=== PATIENT | male | born 1985 | race Caucasian/White ===

== ENCOUNTER 2017-12-17 11:09 | Day surgery (SDC) | payer MEDICAID ==
[2017-12-13 10:46] LABS: BASOPHILS % (AUTO) 0.3 % (0-1); EOSINOPHILS # (AUTO) 0.3 X10'3 (0-0.9); EOSINOPHILS % (AUTO) 4.4 % (0-6); MEAN CORPUSCULAR HEMOGLOBIN 28.3 PG (27.0-31.0); MEAN CORPUSCULAR HGB CONC 34.1 % (33.0-36.5); MEAN CORPUSCULAR VOLUME 82.9 FL (78-98); MEAN PLATELET VOLUME 9.3 FL (7.4-10.4); MONOCYTES # (AUTO) 0.4 X10'3 (0-0.9); MONOCYTES % (AUTO) 6.6 % (2-12); NEUTROPHILS # (AUTO) 3.6 X10'3 (1.8-7.7); NEUTROPHILS % (AUTO) 56.7 % (42-75); PRE OP HEMATOCRIT 44.8 % (42.0-52.0); PRE OP HEMOGLOBIN 15.3 g/dL (14.0-17.9); PRE OP PLATELET COUNT 202 X10'3 (140-440); RED CELL DISTRIBUTION WIDTH 13.6 % (11.5-14.5)
[2017-12-13 10:47] LABS: CLARITY,URINE CLEAR (Clear); COLOR,URINE YELLOW (Yellow); GLUCOSE, URINE NEGATIVE (Neg); KETONES,URINE NEGATIVE (Neg); LEUKOCYTE ESTERASE ,URINE NEGATIVE (Neg); NITRITES, URINE NEGATIVE (Neg); OCCULT BLOOD,URINE NEGATIVE (Neg); PROTEIN,URINE NEGATIVE (Neg); UROBILINOGEN,URINE 0.2 E.U/dL (0.2-1.0)
[2017-12-13 10:52] LABS: UA COLLECTION TYPE NON-SPECIFIED
[2017-12-13 11:01] LABS: ALBUMIN 3.8 G/DL (3.4-5.0); ALBUMIN/GLOBULIN RATIO 1.2 (1.1-1.5); ALKALINE PHOSPHATASE 90 IU/L (46-116); BLOOD UREA NITROGEN 13 MG/DL (7-18); BUN/CREATININE RATIO 13.8 (5.4-32.0); CALCIUM 8.9 MG/DL (8.5-10.1); CHLORIDE 108 MMOL/L (99-107); CREATININE 0.94 MG/DL (0.60-1.10); PRE OP ALT 55 U/L (30-65); PRE OP ANION GAP 9 (8-16); PRE OP AST 17 U/L (10-37); PRE OP BILIRUB, TOTAL 1.2 MG/DL (0.0-1.0); PRE OP GLUCOSE 110 MG/DL (70-104); PRE OP POTASSIUM 4.1 MMOL/L (3.4-5.1); PRE OP SODIUM 143 MMOL/L (135-145); TOTAL CARBON DIOXIDE 25.7 MMOL/L (24-32); TOTAL PROTEIN 6.9 G/DL (6.4-8.2); eGFR > 90 ML/MIN
[~2017-12-17] VITALS: Ht 188 cm; Wt 118.6 kg
[2017-12-17] VITALS (8 sets, daily range): BP systolic 112–138; BP diastolic 63–75
[~2017-12-17 11:09] MED LIST: MV-M1TAB3 PO; ceFAZolin inj. 3,000 MG in normal saline 100ml IV soln 100 ML IV ONE; famotidine 20mg tablet PO ONE; ringers solution, lacted 1,000 ML IV SCH
[2017-12-17] MEDS ORDERED: ringers solution, lacted 1,000 ML IV SCH (13:27)
[2017-12-17] MEDS ORDERED: meperidine/PF 50mg/ml syringe IV PRN ×3 (13:30)
[2017-12-17] MEDS ORDERED: proCHLORperazine 10 MG/2 ml inj IV PRN (13:30)
[2017-12-17] MEDS ORDERED: morphine 2 MG/ML inj. syringe IV PRN ×2 (13:30)
[2017-12-17] MEDS ORDERED: ondansetron/PF 4mg/2ml inj IV PRN (13:30)
[2017-12-17] MEDS ORDERED: BUPIVAcaine/PF 2.5 mg/ml (0.25%) 30ml vial ONE (13:50)
[2017-12-17] MEDS ORDERED: LIDOcaine 1% 30ml vial 30 ML ONE (13:51)
[2017-12-17] MEDS ORDERED: sevoflurane 250ml liquid IH ONE (15:22)
[2017-12-17] MEDS ORDERED: ondansetron/PF 4mg/2ml inj ONE (15:22)
[2017-12-17] MEDS ORDERED: dexamethasone sod phosphate 4mg/ml inj. ONE (15:22)
[2017-12-17] MEDS ORDERED: fentaNYL/PF 50MCG/1 ML 2ML syringe ONE (15:29)
[2017-12-17] MEDS ORDERED: midazolam 2 mg/2 ml injection ONE (15:30)
[2017-12-17] MEDS ORDERED: LIDOcaine 2% (20mg/ml) 5ml vial ONE (15:31)
[2017-12-17] MEDS ORDERED: propofol inj 20 ML IV ONE (15:31)
== END 2017-12-17 17:20 | disposition home or self-care (01) ==
LOC: PAS 11:09
PROVIDERS: ATTEND Surgery
DX: D36.17 Benign neoplasm of peripheral nerves and autonomic nervous system of trunk, unspecified (principal); E66.9 Obesity, unspecified; K21.9 Gastro-esophageal reflux disease without esophagitis; Z72.89 Other problems related to lifestyle; Z98.890 Other specified postprocedural states; Z87.891 Personal history of nicotine dependence; Z68.34 Body mass index [BMI] 34.0-34.9, adult
CPT/HCPCS: 11404; 36415; 80053; 81003; 85025; A6449; J0690; J1100; J2001; J2250; J2405; J2704; J3010; J3490; J7030; J7120; A7000

== ENCOUNTER 2018-05-15 08:36 | Emergency (ER) | payer MEDICAID ==
[~2018-05-15] VITALS: Ht 188 cm; Wt 106.8 kg
[~2018-05-15 08:36] MED LIST changes: -ceFAZolin inj. 3,000 MG in normal saline 100ml IV soln 100 ML IV ONE; -famotidine 20mg tablet PO ONE; -ringers solution, lacted 1,000 ML IV SCH
[2018-05-15 08:39] VITALS: BP 106/73
[2018-05-15] MEDS ORDERED: ACET-3068 PO (10:35)
== END 2018-05-15 11:11 | disposition home or self-care (01) ==
LOC: ER 08:37
DX: S54.01XA Injury of ulnar nerve at forearm level, right arm, initial encounter (principal); Z79.899 Other long term (current) drug therapy; Z98.890 Other specified postprocedural states; X58.XXXA Exposure to other specified factors, initial encounter; Y93.89 Activity, other specified; Y92.89 Other specified places as the place of occurrence of the external cause; Y99.8 Other external cause status
CPT/HCPCS: 29105; 99283; A4565; A6449

== ENCOUNTER 2018-11-26 04:23 | Emergency (ER) | payer MEDICAID ==
[~2018-11-26] VITALS: Ht 188 cm; Wt 120.0 kg
--- NOTE | 2018-11-26 04:43 | NUR ---
[facility] REPORTED THAT THE [facility] BROTHERS DID CALL [facility] OFFICE CONFIRMING THE PATIENTS STORY THAT [facility] RESPONDED TO HOUSE, BOTH DECLINING TO PRESS CHARGES
[2018-11-26] MEDS ORDERED: LIDOcaine 1.5% w/epinephrine 1:200,000 5ml ampul IJ ONE (04:50)
[2018-11-26] MEDS ORDERED: TETanus/Pertussis (Acell)/Diphther VAC/PF (Tdap-Adult) 0.5ml syringe IM ONE (04:50)
[2018-11-26] MEDS ORDERED: LIDOcaine 1% w/EPI 1:100,000 30ml vial (MDV) IJ ONE (04:55)
--- NOTE | 2018-11-26 04:55 | NUR ---
PT TO CT
--- NOTE | 2018-11-26 05:05 | NUR ---
pt back from ct, he is visiting with his brother. He has an ice pack.
--- NOTE | 2018-11-26 05:41 | NUR ---
fresh ice packs to his left eye, hob has been and is elevated 45 degrees. Instructed him to put down his cell phone, for less eye strain, to relax. Lights dimmed.
[2018-11-26] MEDS ORDERED: ondansetron 4mg rapidly disintigrating tab PO ONE (06:50)
--- NOTE | 2018-11-26 07:04 | NUR ---
TECH AT BEDSIDE TO IRRIGATE WOUNDS. PT MEDICATED FOR NAUSEA
--- NOTE | 2018-11-26 07:23 | NUR ---
DR MCKEE AT BEDSIDE FOR SUTURE REPAIR
--- NOTE | 2018-11-26 07:45 | NUR ---
LAC REPAIR COMPLETE
--- NOTE | 2018-11-26 08:01 | NUR ---
PT ASLEEP-SNORING RESPIRATIONS, AWAKENS TO VERBAL. DECLINES PAIN MEDS. +ETOH
--- NOTE | 2018-11-26 08:55 | NUR ---
REPORT CALLED TO [place] AT [facility]. REPORT TO [employer]ER LOCOMOTIVE CRANE CAMILO. PT TRANSFERED VIA AMBULANCE TO [facility]
[2018-11-26 09:10] VITALS: BP 162/98
== END 2018-11-26 09:12 | disposition short-term general hospital (02) ==
LOC: ER 04:23
DX: S02.82XA Fracture of other specified skull and facial bones, left side, initial encounter for closed fracture (principal); S01.81XA Laceration without foreign body of other part of head, initial encounter; S05.12XA Contusion of eyeball and orbital tissues, left eye, initial encounter; H11.32 Conjunctival hemorrhage, left eye; F12.90 Cannabis use, unspecified, uncomplicated; Z98.890 Other specified postprocedural states; Y04.0XXA Assault by unarmed brawl or fight, initial encounter; Y93.89 Activity, other specified; Y92.89 Other specified places as the place of occurrence of the external cause; Y99.9 Unspecified external cause status
CPT/HCPCS: 12014; 70450; 70486; 72125; 90471; 90715; 99285; J3490

== ENCOUNTER 2019-04-11 19:57 | Emergency (ER) | payer MEDICAID, OTHER ==
[~2019-04-11] VITALS: Ht 188 cm; Wt 113.0 kg
[2019-04-11 20:07] VITALS: BP 141/84
== END 2019-04-11 22:39 | disposition home or self-care (01) ==
LOC: ER 19:58
DX: S61.211A Laceration without foreign body of left index finger without damage to nail, initial encounter (principal); F12.90 Cannabis use, unspecified, uncomplicated; Z98.890 Other specified postprocedural states; Z79.899 Other long term (current) drug therapy; W25.XXXA Contact with sharp glass, initial encounter; Y93.E9 Activity, other interior property and clothing maintenance; Y92.89 Other specified places as the place of occurrence of the external cause; Y99.8 Other external cause status
CPT/HCPCS: 12001; 99283

== ENCOUNTER 2019-12-30 20:24 | Inpatient (IN) | payer OTHER ==
[~2019-12-30] VITALS: Ht 188 cm; Wt 116.8 kg
[2019-12-30 21:40] LABS: BASOPHILS % (AUTO) 0.6 % (0-1); EOSINOPHILS # (AUTO) 0.1 X10'3 (0-0.9); EOSINOPHILS % (AUTO) 1.6 % (0-6); HEMATOCRIT 37.9 % (42.0-52.0); HEMOGLOBIN 12.8 g/dl (14.0-17.9); LYMPHOCYTES # (AUTO) 2.4 X10'3 (1.1-4.8); LYMPHOCYTES % (AUTO) 30.6 % (21-51); MEAN CORPUSCULAR HEMOGLOBIN 26.8 PG (27.0-31.0); MEAN CORPUSCULAR HGB CONC 33.9 g/dL (33.0-36.5); MEAN CORPUSCULAR VOLUME 79.1 FL (78-98); MEAN PLATELET VOLUME 9.9 FL (7.4-10.4); MONOCYTES # (AUTO) 0.7 X10'3 (0-0.9); MONOCYTES % (AUTO) 8.6 % (2-12); NEUTROPHILS # (AUTO) 4.6 X10'3 (1.8-7.7); NEUTROPHILS % (AUTO) 58.6 % (42-75); PLATELET COUNT 163 X10'3 (140-440); RED BLOOD COUNT 4.79 X10'6 (4.70-6.10); RED CELL DISTRIBUTION WIDTH 13.9 % (11.5-14.5); WHITE BLOOD COUNT 7.8 X10'3 (4.5-11.0)
[2019-12-30 21:43] LABS: CLARITY,URINE CLEAR (Clear); COLOR,URINE YELLOW (Yellow); GLUCOSE, URINE NEGATIVE (Neg); KETONES,URINE NEGATIVE (Neg); LEUKOCYTE ESTERASE ,URINE NEGATIVE (Neg); NITRITES, URINE NEGATIVE (Neg); OCCULT BLOOD,URINE NEGATIVE (Neg); PH,URINE 5.5 (4.8-8.0); PROTEIN,URINE NEGATIVE (Neg)
[2019-12-30 21:53] LABS: ALANINE AMINOTRANSFERASE 63 U/L (12-78); ALBUMIN 3.3 G/DL (3.4-5.0); ALKALINE PHOSPHATASE 179 IU/L (46-116); ANION GAP 12 (8-16); ASPARTATE AMINO TRANSFERASE 41 U/L (10-37); BILIRUBIN,TOTAL 2.9 MG/DL (0.1-1.0); BLOOD UREA NITROGEN 9 MG/DL (7-18); BUN/CREATININE RATIO 9.4 (5.4-32.0); CALCIUM 8.2 MG/DL (8.5-10.1); CHLORIDE 108 MMOL/L (99-107); CREATININE 0.96 MG/DL (0.60-1.10); GLUCOSE 100 MG/DL (70-104); LIPASE 104 U/L (73-393); POTASSIUM 4.1 MMOL/L (3.5-5.1); SODIUM 143 MMOL/L (135-145); TOTAL CARBON DIOXIDE 23.4 MMOL/L (24-32); TOTAL PROTEIN 6.6 G/DL (6.4-8.2); eGFR 89 ML/MIN
[2019-12-30 22:06] LABS: UA COLLECTION TYPE VOIDED
[2019-12-31] VITALS (9 sets, daily range): BP systolic 98–125; BP diastolic 53–94
[2019-12-31] MEDS ORDERED: normal saline 1000ML IV soln IVB ONE (00:50)
[2019-12-31] MEDS ORDERED: ondansetron/PF 4mg/2ml inj IV ONE (00:50)
[2019-12-31] MEDS: morphine 4 MG/ML inj SYRINge IV PRN ×2 (00:57→01:24)
--- NOTE | 2019-12-31 01:04 | NUR ---
pts heartrate increased to 170's after MD performed abd exam. MD aware - meds and fluids have been ordered and pt has been medicated.
--- NOTE | 2019-12-31 01:26 | NUR ---
pt remains tachycardic but no new complaints. he finished the 1l bolus and has been given 4mg morphine x 2 doses. will notify MD and continue to monitor. CT was completed, pending results.
[2019-12-31] MEDS ORDERED: NO HOME MEDS (02:12)
[2019-12-31] MEDS ORDERED: piperacillin/tazo 3.375gm/50ml 50 ML IV ONE (02:25)
--- NOTE | 2019-12-31 02:53 | NUR ---
PTS HEARTRATE IS STILL ELEVATED. AWARE - NO NEW ORDERS. IV ABX INFUSING
--- NOTE | 2019-12-31 03:08 | NUR ---
HOSPITALIST AT BEDSIDE FOR ADMISSION
--- NOTE | 2019-12-31 03:13 | NUR ---
VERBAL ORDER FROM [facility] FOR 10MG CARDIZEM IV PUSH AND THEN CARDIZEM DRIP AT 5ML\HR - ORDERS ENTERED AND PT WILL BE MEDICATED ORDERED
[2019-12-31] MEDS ORDERED: diltiazem 5mg/ml 5ml inj. IV ONE (03:15)
[2019-12-31] MEDS ORDERED: diltiazem-D5W 125mg/125ml 125 ML IV SCH ×2 (03:15→04:45)
[2019-12-31] MEDS ORDERED: diltiazem-NS 100mg/100ml 100 ML IV SCH (03:15)
[2019-12-31] MEDS ORDERED: magnesium 2GM in 50ml NS 50 ML IV PRN (03:20)
[2019-12-31] MEDS ORDERED: morphine 2 MG/ML inj. syringe IV PRN ×2 (03:20)
[2019-12-31] MEDS ORDERED: potassium CL 10mEq/100ml bag 100 ML IV PRN ×2 (03:20)
[2019-12-31] MEDS ORDERED: magnesium 4gm in 100ml NS 100 ML IV PRN (03:20)
[2019-12-31] MEDS ORDERED: ondansetron/PF 4mg/2ml inj IV PRN (03:20)
[2019-12-31] MEDS: normal saline 1000ml 1,000 ML IV SCH ×3 (03:41→19:09)
--- NOTE | 2019-12-31 04:42 | NUR ---
PTS HR DOWN TO 130'S - CARDIZEM INFUSING AT 5ML/HR
--- NOTE | 2019-12-31 04:46 | NUR ---
DOM CONTACTED TO GET ORDER TO INCREASE CARDIZEM TO 10MG/HR PT IS NOT RESPONDING TO 5MG\HR - HEART RATE STILL IN 140'S CURRENTLY.
[2019-12-31] MEDS: diltiazem-NS 100mg/100ml 100 ML IV SCH ×4 (04:53→21:30)
--- NOTE | 2019-12-31 05:18 | NUR ---
SPOKE WITH MD FERNANDES RE: D-DIMER RESULT - VERBAL ORDER FOR CTA CHEST
[2019-12-31] MEDS ORDERED: iohexol 350MG/ML 100ml bottle IV ONE (05:30)
--- NOTE | 2019-12-31 05:46 | NUR ---
PT PLACED ON HOSPITAL BED FOR COMFORT
--- NOTE | 2019-12-31 05:48 | NUR ---
PT BACK FROM CTA CHEST STUDY AND PLACED ONTO HOSPITAL BED FOR COMFORT.
--- NOTE | 2019-12-31 07:14 | NUR ---
patient arrived on unit already in hospital bed, alert and oriented x4, pleasant, states pain is 4/10 at this time. cardizem drip at 10, placed patient on mobile, VSS except HR in 130s, patient states no SOB and does not feel like heart is racing. Denies any illicit drug use. Patient to go for cholecystectomy this evening with Dr. Silverman. No acute distress, will continue to monitor.
[2019-12-31] MEDS: K and/or MAG REPLACEMENT MC SCH ×2 (08:00→20:00)
[2019-12-31] MEDS: piperacillin/tazo 3.375gm/50ml 50 ML IV SCH ×2 (10:12→16:08)
--- NOTE | 2019-12-31 12:32 | NUR ---
Received order for patient to go to MRI for MRCP, called Dr. Clemente to confirm order as patient is currently on a cardizem drip at 10ml/hr with HR still in 130s.
[2019-12-31] MEDS ORDERED: diltiazem 30mg tablet PO ONE (12:40)
--- NOTE | 2019-12-31 12:50 | NUR ---
Dr. Clemente called, said "have the hospitalist figure it out" regarding the MRI and the patient's current HR and cardizem drip status.
--- NOTE | 2019-12-31 13:17 | NUR ---
PAGER ID: [phone] MESSAGE: Re: Ute Green. Room: 3026A. EKG performed on Pt. Do you want to see it? -Renato PCU #[id number] Dr. Benton paged concerning Pt's EKG
[2019-12-31] MEDS ORDERED: NORMAL SALINE IV ONE (14:30)
[2019-12-31] MEDS ORDERED: SINCALIDE IV ONE (14:30)
--- NOTE | 2019-12-31 15:02 | NUR ---
Called Vijaya CHERY. Confirmed that HIDA scan will be with EF. Elias Aguiar in Nuc Med.
--- NOTE | 2019-12-31 15:04 | NUR ---
Problems reprioritized. Patient report given, questions answered & plan of care reviewed with MINDY Valdovinos.
--- NOTE | 2019-12-31 15:05 | NUR ---
Patient in room PCU 3026. I have received report from Ana Price RN and had the opportunity to ask questions and assume patient care.
--- NOTE | 2019-12-31 15:12 | NUR ---
PAGER ID: [phone] MESSAGE: [id number], Nayan Unger. Still afib in 120s-130s. HIDA scan will not be done til tomorrow AM. Can he eat before he goes NPO after midnight? Leilani [phone]
--- NOTE | 2019-12-31 16:24 | NUR ---
Spoke with Chetan CHERY at bedside. States patient will go to surgery on cardizem drip and patient may go all the way up to max dose if heart rate needs it. Chetan CHERY instructed me to call pharmacy to confirm max dose and have patient on a rate of 15 mg/hr. Spoke with pharmacist who states 15mg/hr is max dose and can be maintained at a max of 24hrs so HR needs to be monitored so that dose may be re-evaluated before 24hr freddie. Pharmacist instructed me to edit dosing to 15mg/hr on [employer] and they will send up another bag.
--- NOTE | 2019-12-31 16:28 | NUR ---
Chetan CHERY states that patient must remain NPO until HIDA scan and surgery is done. Pt. made aware. Not pleased stating he has been here since 1999 last night and has not been allowed to eat. Provided education on procedures to be done and rationale behind being NPO. Offered ice chips. Pt refused.
[2019-12-31] MEDS ORDERED: acetaminophen 325mg tablet PO PRN (18:00)
--- NOTE | 2019-12-31 18:30 | NUR ---
Problems reprioritized. Patient report given, questions answered & plan of care reviewed with Eduardo RN.
--- NOTE | 2019-12-31 18:30 | NUR ---
Patient in room PCU 3026. I have received report from Aruna GUILLEN and had the opportunity to ask questions and assume patient care.
[2019-12-31] MEDS ORDERED: metoprolol tartrate 1mg/ml inj IV ONE (23:55)
[2020-01-01] VITALS (17 sets, daily range): BP systolic 101–130; BP diastolic 48–97
[2020-01-01] MEDS: piperacillin/tazo 3.375gm/50ml 50 ML IV SCH ×4 (01:03→23:05)
[2020-01-01] MEDS: diltiazem-NS 100mg/100ml 100 ML IV SCH ×3 (01:03→10:33)
[2020-01-01 01:37] LABS: BASOPHILS % (AUTO) 0.3 % (0-1); EOSINOPHILS # (AUTO) 0.1 X10'3 (0-0.9); EOSINOPHILS % (AUTO) 1.1 % (0-6); HEMATOCRIT 39.1 % (42.0-52.0); LYMPHOCYTES # (AUTO) 2.3 X10'3 (1.1-4.8); LYMPHOCYTES % (AUTO) 23.8 % (21-51); MEAN CORPUSCULAR HEMOGLOBIN 26.6 PG (27.0-31.0); MEAN CORPUSCULAR HGB CONC 33.3 g/dL (33.0-36.5); MEAN CORPUSCULAR VOLUME 79.9 FL (78-98); MEAN PLATELET VOLUME 10.3 FL (7.4-10.4); MONOCYTES # (AUTO) 0.6 X10'3 (0-0.9); MONOCYTES % (AUTO) 6.7 % (2-12); NEUTROPHILS # (AUTO) 6.5 X10'3 (1.8-7.7); NEUTROPHILS % (AUTO) 68.1 % (42-75); PLATELET COUNT 180 X10'3 (140-440); RED BLOOD COUNT 4.89 X10'6 (4.70-6.10); RED CELL DISTRIBUTION WIDTH 13.9 % (11.5-14.5); WHITE BLOOD COUNT 9.5 X10'3 (4.5-11.0)
[2020-01-01 01:49] LABS: PARTIAL THROMBOPLASTIN TIME 25 SECONDS (22-32)
[2020-01-01 01:51] LABS: ALANINE AMINOTRANSFERASE 61 U/L (12-78); ALBUMIN 3.2 G/DL (3.4-5.0); ALKALINE PHOSPHATASE 167 IU/L (46-116); ANION GAP 12 (8-16); ASPARTATE AMINO TRANSFERASE 36 U/L (10-37); BILIRUBIN,TOTAL 4.9 MG/DL (0.1-1.0); BLOOD UREA NITROGEN 10 MG/DL (7-18); BUN/CREATININE RATIO 10.5 (5.4-32.0); CALCIUM 8.6 MG/DL (8.5-10.1); CHLORIDE 108 MMOL/L (99-107); CREATININE 0.95 MG/DL (0.60-1.10); GLUCOSE 86 MG/DL (70-104); MAGNESIUM 1.9 MG/DL (1.5-2.4); POTASSIUM 3.9 MMOL/L (3.5-5.1); SODIUM 142 MMOL/L (135-145); TOTAL CARBON DIOXIDE 22.3 MMOL/L (24-32); eGFR 90 ML/MIN
[2020-01-01 01:55] LABS: TOTAL PROTEIN 6.4 G/DL (6.4-8.2)
--- NOTE | 2020-01-01 06:00 | NUR ---
Patient in room PCU 3026. I have received report from Eduardo RN and had the opportunity to ask questions and assume patient care.
--- NOTE | 2020-01-01 06:30 | NUR ---
Problems reprioritized. Patient report given, questions answered & plan of care reviewed with Aruna GUILLEN.
[2020-01-01] MEDS: pantoprazole 40 MG vial IV SCH (07:38)
[2020-01-01] MEDS: K and/or MAG REPLACEMENT MC SCH ×2 (08:00→20:00)
[2020-01-01] MEDS: normal saline 1000ml 1,000 ML IV SCH ×2 (09:19→11:19)
[2020-01-01] MEDS ORDERED: SINCALIDE IV ONE (09:40)
[2020-01-01] MEDS ORDERED: NORMAL SALINE IV ONE (09:40)
[2020-01-01] MEDS ORDERED: amiodarone 150mg/dext, iso-os 100 ML IV ONE (10:15)
--- NOTE | 2020-01-01 11:30 | NUR ---
Problems reprioritized. Patient report given, questions answered & plan of care reviewed with Lisa GUILLEN.
--- NOTE | 2020-01-01 11:36 | NUR ---
Patient in room PCU 3026. I have received report from MINDY Valdovinos and had the opportunity to ask questions and assume patient care.
[2020-01-01] MEDS: amiodarone/D5 360MG/200ML BAG 200 ML IV SCH ×4 (12:19→23:06)
--- NOTE | 2020-01-01 13:14 | NUR ---
pt off to MRI trailer
--- NOTE | 2020-01-01 15:13 | NUR ---
[id number] MESSAGE: UtePeter oneal Rm [id number] MRCP results are back. Pt is curious as to plan since no gallstones identified. MINDY Gonzalez ext [phone]
--- NOTE | 2020-01-01 16:02 | NUR ---
[id number] MESSAGE: UtePeter oneal Rm [id number] MRCP results are back. Pt is curious as to plan since no gallstones identified. MINDY Gonzalez ext [phone]
--- NOTE | 2020-01-01 18:00 | NUR ---
Patient in room PCU 3011. I have received report from Lisa GUILLEN and had the opportunity to ask questions and assume patient care.
--- NOTE | 2020-01-01 18:30 | NUR ---
Problems reprioritized. Patient report given, questions answered & plan of care reviewed with MINDY Matthews.
[2020-01-01] MEDS ORDERED: HYDROcodone/acetaminophen 10/325mg tab PO PRN (20:30)
--- NOTE | 2020-01-01 20:39 | NUR ---
Amiodarone 1.5mg Patient sustaining 140-150s since 1599, MD Shook called and got orders for changing the dose to Amiodarone 1.5mg/hr. [place] 10 was also ordered for hernia pain per MD Shook. Addendum: 01/02/20 at 0446 by Cassie Martinez RN Dose rate changed to 1.5mg/min per MD Shook
[2020-01-02] VITALS (12 sets, daily range): BP systolic 97–121; BP diastolic 74–95
[2020-01-02] MEDS: normal saline 1000ml 1,000 ML IV SCH ×2 (04:41→15:19)
[2020-01-02 06:21] LABS: BASOPHILS % (AUTO) 0.2 % (0-1); EOSINOPHILS # (AUTO) 0.2 X10'3 (0-0.9); HEMATOCRIT 39.4 % (42.0-52.0); LYMPHOCYTES # (AUTO) 2.2 X10'3 (1.1-4.8); LYMPHOCYTES % (AUTO) 23.7 % (21-51); MEAN CORPUSCULAR HEMOGLOBIN 26.3 PG (27.0-31.0); MEAN CORPUSCULAR HGB CONC 33.1 g/dL (33.0-36.5); MEAN CORPUSCULAR VOLUME 79.3 FL (78-98); MEAN PLATELET VOLUME 10.2 FL (7.4-10.4); MONOCYTES # (AUTO) 0.6 X10'3 (0-0.9); MONOCYTES % (AUTO) 6.7 % (2-12); NEUTROPHILS # (AUTO) 6.3 X10'3 (1.8-7.7); NEUTROPHILS % (AUTO) 67.4 % (42-75); PLATELET COUNT 163 X10'3 (140-440); RED BLOOD COUNT 4.97 X10'6 (4.70-6.10); RED CELL DISTRIBUTION WIDTH 14.3 % (11.5-14.5); WHITE BLOOD COUNT 9.4 X10'3 (4.5-11.0)
--- NOTE | 2020-01-02 06:28 | NUR ---
Problems reprioritized. Patient report given, questions answered & plan of care reviewed with Lisa GUILLEN.
[2020-01-02 06:43] LABS: ALANINE AMINOTRANSFERASE 54 U/L (12-78); ALBUMIN 2.9 G/DL (3.4-5.0); ALKALINE PHOSPHATASE 143 IU/L (46-116); ANION GAP 10 (8-16); ASPARTATE AMINO TRANSFERASE 33 U/L (10-37); BILIRUBIN,TOTAL 3.1 MG/DL (0.1-1.0); BLOOD UREA NITROGEN 8 MG/DL (7-18); BUN/CREATININE RATIO 8.8 (5.4-32.0); CALCIUM 8.5 MG/DL (8.5-10.1); CHLORIDE 107 MMOL/L (99-107); CREATININE 0.91 MG/DL (0.60-1.10); GLUCOSE 109 MG/DL (70-104); MAGNESIUM 1.8 MG/DL (1.5-2.4); POTASSIUM 3.8 MMOL/L (3.5-5.1); SODIUM 140 MMOL/L (135-145); TOTAL CARBON DIOXIDE 22.7 MMOL/L (24-32); TOTAL PROTEIN 5.9 G/DL (6.4-8.2); eGFR > 90 ML/MIN
[2020-01-02] MEDS: K and/or MAG REPLACEMENT MC SCH ×2 (08:00→20:00)
[2020-01-02] MEDS: piperacillin/tazo 3.375gm/50ml 50 ML IV SCH ×2 (08:38→17:41)
[2020-01-02] MEDS: pantoprazole 40 MG vial IV SCH (08:38)
[2020-01-02] MEDS: carVEDilol 3.125mg tablet PO SCH ×2 (09:47→10:19)
[2020-01-02] MEDS: amiodarone/D5 360MG/200ML BAG 200 ML IV SCH (10:31)
--- NOTE | 2020-01-02 13:45 | NUR ---
[id number] MESSAGE: Peter De Los Santosfanta RM 3017 Would like to talk to you again when you are available could you come to PCU when you have time. MINDY Gonzalez [phone]
[2020-01-02] MEDS ORDERED: propranolol 10mg tablet PO ONE (14:15)
[2020-01-02] MEDS ORDERED: aspirin 81mg tablet.DR PO ONE (14:20)
[2020-01-02] MEDS: methimazole 5mg tablet PO SCH ×2 (15:19→20:16)
--- NOTE | 2020-01-02 17:23 | NUR ---
PAGER ID: [phone] MESSAGE: [phone] MATT. CAN I HAVE AN ORDER FOR SOME ANTIANXIETY MED? HE NEEDS SOMETHING PLEASE BRYCE Daniel [phone]
--- NOTE | 2020-01-02 18:00 | NUR ---
Patient in room PCU 3011. I have received report from Jasbir GUILLEN and had the opportunity to ask questions and assume patient care.
[2020-01-02] MEDS: LORazepam 0.5 MG tablet PO PRN (18:55)
[2020-01-02] MEDS: lactobacillus rhamnosus 10,000 MMU CELLS/CAPSULE PO SCH (20:13)
[2020-01-02] MEDS: propranolol 10mg tablet PO SCH (20:13)
[2020-01-03] MEDS: piperacillin/tazo 3.375gm/50ml 50 ML IV SCH ×4 (00:17→23:13)
[2020-01-03] MEDS: normal saline 1000ml 1,000 ML IV SCH ×3 (01:57→21:48)
[2020-01-03 02:00] VITALS: BP 110/73
[2020-01-03 06:26] LABS: BASOPHILS % (AUTO) 0.5 % (0-1); EOSINOPHILS # (AUTO) 0.2 X10'3 (0-0.9); EOSINOPHILS % (AUTO) 2.7 % (0-6); HEMATOCRIT 41.2 % (42.0-52.0); HEMOGLOBIN 13.7 g/dl (14.0-17.9); LYMPHOCYTES # (AUTO) 2.6 X10'3 (1.1-4.8); LYMPHOCYTES % (AUTO) 35.9 % (21-51); MEAN CORPUSCULAR HEMOGLOBIN 26.4 PG (27.0-31.0); MEAN CORPUSCULAR HGB CONC 33.2 g/dL (33.0-36.5); MEAN CORPUSCULAR VOLUME 79.6 FL (78-98); MEAN PLATELET VOLUME 10.3 FL (7.4-10.4); MONOCYTES # (AUTO) 0.6 X10'3 (0-0.9); MONOCYTES % (AUTO) 8.1 % (2-12); NEUTROPHILS # (AUTO) 3.8 X10'3 (1.8-7.7); NEUTROPHILS % (AUTO) 52.8 % (42-75); PLATELET COUNT 158 X10'3 (140-440); RED BLOOD COUNT 5.18 X10'6 (4.70-6.10); RED CELL DISTRIBUTION WIDTH 13.9 % (11.5-14.5); WHITE BLOOD COUNT 7.2 X10'3 (4.5-11.0)
--- NOTE | 2020-01-03 06:28 | NUR ---
Patient in room PCU 3011. I have received report from Cassie GUILLEN and had the opportunity to ask questions and assume patient care.
--- NOTE | 2020-01-03 06:29 | NUR ---
Problems reprioritized. Patient report given, questions answered & plan of care reviewed with Jayy GUILLEN.
[2020-01-03 06:46] LABS: ALANINE AMINOTRANSFERASE 55 U/L (12-78); ALBUMIN 2.8 G/DL (3.4-5.0); ALKALINE PHOSPHATASE 137 IU/L (46-116); ANION GAP 9 (8-16); ASPARTATE AMINO TRANSFERASE 38 U/L (10-37); BLOOD UREA NITROGEN 6 MG/DL (7-18); BUN/CREATININE RATIO 6.1 (5.4-32.0); CALCIUM 8.5 MG/DL (8.5-10.1); CHLORIDE 109 MMOL/L (99-107); CREATININE 0.98 MG/DL (0.60-1.10); GLUCOSE 86 MG/DL (70-104); MAGNESIUM 1.8 MG/DL (1.5-2.4); SODIUM 143 MMOL/L (135-145); TOTAL CARBON DIOXIDE 24.6 MMOL/L (24-32); eGFR 87 ML/MIN
[2020-01-03 06:50] LABS: ALBUMIN/GLOBULIN RATIO 0.9 (1.1-1.5)
[2020-01-03 07:00] VITALS: BP 119/84
[2020-01-03] MEDS: K and/or MAG REPLACEMENT MC SCH ×2 (07:48→20:00)
[2020-01-03] MEDS: pantoprazole 40mg Tablet.DR PO SCH (07:50)
[2020-01-03] MEDS: lactobacillus rhamnosus 10,000 MMU CELLS/CAPSULE PO SCH ×2 (07:50→20:21)
[2020-01-03] MEDS: propranolol 10mg tablet PO SCH ×3 (07:50→20:21)
[2020-01-03] MEDS: aspirin 81mg tablet.DR PO SCH (07:50)
[2020-01-03] MEDS: methimazole 5mg tablet PO SCH ×3 (08:00→20:22)
[2020-01-03] MEDS ORDERED: propranolol 10mg tablet PO ONE (08:55)
[2020-01-03 11:00] VITALS: BP 108/68
[2020-01-03 15:00] VITALS: BP 113/77
--- NOTE | 2020-01-03 18:00 | NUR ---
Patient in room PCU 3011. I have received report from Jayy GUILLEN and had the opportunity to ask questions and assume patient care.
--- NOTE | 2020-01-03 18:11 | NUR ---
Problems reprioritized. Patient report given, questions answered & plan of care reviewed with Cassie GUILLEN.
[2020-01-03 19:00] VITALS: BP 113/89
[2020-01-03 22:00] VITALS: BP 112/82
[2020-01-03] MEDS: LORazepam 0.5 MG tablet PO PRN (22:38)
[2020-01-04 03:00] VITALS: BP 107/80
[2020-01-04 04:46] LABS: ALANINE AMINOTRANSFERASE 62 U/L (12-78); ALBUMIN 2.9 G/DL (3.4-5.0); ALBUMIN/GLOBULIN RATIO 0.9 (1.1-1.5); ALKALINE PHOSPHATASE 138 IU/L (46-116); ANION GAP 9 (8-16); ASPARTATE AMINO TRANSFERASE 39 U/L (10-37); BILIRUBIN,TOTAL 3.1 MG/DL (0.1-1.0); BLOOD UREA NITROGEN 8 MG/DL (7-18); BUN/CREATININE RATIO 6.9 (5.4-32.0); CALCIUM 8.3 MG/DL (8.5-10.1); CHLORIDE 107 MMOL/L (99-107); CREATININE 1.16 MG/DL (0.60-1.10); GLUCOSE 90 MG/DL (70-104); MAGNESIUM 1.8 MG/DL (1.5-2.4); POTASSIUM 3.7 MMOL/L (3.5-5.1); SODIUM 142 MMOL/L (135-145); eGFR 72 ML/MIN
[2020-01-04 04:54] LABS: BASOPHILS % (AUTO) 0.5 % (0-1); EOSINOPHILS # (AUTO) 0.2 X10'3 (0-0.9); EOSINOPHILS % (AUTO) 2.6 % (0-6); HEMATOCRIT 40.8 % (42.0-52.0); HEMOGLOBIN 13.7 g/dl (14.0-17.9); LYMPHOCYTES # (AUTO) 2.4 X10'3 (1.1-4.8); LYMPHOCYTES % (AUTO) 31.4 % (21-51); MEAN CORPUSCULAR HEMOGLOBIN 27.7 PG (27.0-31.0); MEAN CORPUSCULAR HGB CONC 33.6 g/dL (33.0-36.5); MEAN CORPUSCULAR VOLUME 82.3 FL (78-98); MEAN PLATELET VOLUME 9.9 FL (7.4-10.4); MONOCYTES # (AUTO) 0.7 X10'3 (0-0.9); MONOCYTES % (AUTO) 8.8 % (2-12); NEUTROPHILS # (AUTO) 4.3 X10'3 (1.8-7.7); NEUTROPHILS % (AUTO) 56.7 % (42-75); PLATELET COUNT 170 X10'3 (140-440); RED BLOOD COUNT 4.96 X10'6 (4.70-6.10); RED CELL DISTRIBUTION WIDTH 13.9 % (11.5-14.5); WHITE BLOOD COUNT 7.6 X10'3 (4.5-11.0)
--- NOTE | 2020-01-04 06:30 | NUR ---
Patient in room PCU 3011. I have received report from Cassie GUILLEN and had the opportunity to ask questions and assume patient care.
[2020-01-04 07:00] VITALS: BP 120/73
[2020-01-04] MEDS: aspirin 81mg tablet.DR PO SCH (07:44)
[2020-01-04] MEDS: pantoprazole 40mg Tablet.DR PO SCH (07:44)
[2020-01-04] MEDS: lactobacillus rhamnosus 10,000 MMU CELLS/CAPSULE PO SCH ×2 (07:44→20:05)
[2020-01-04] MEDS: propranolol 10mg tablet PO SCH ×2 (07:45→20:05)
[2020-01-04] MEDS: methimazole 5mg tablet PO SCH ×4 (07:46→20:10)
[2020-01-04] MEDS: piperacillin/tazo 3.375gm/50ml 50 ML IV SCH ×3 (07:46→23:52)
[2020-01-04] MEDS: K and/or MAG REPLACEMENT MC SCH ×2 (07:47→20:00)
[2020-01-04] MEDS: normal saline 1000ml 1,000 ML IV SCH ×2 (07:53→17:24)
[2020-01-04] MEDS ORDERED: digoxin 250mcg/ml 2ml ampule IV ONE ×2 (09:10→13:50)
[2020-01-04 11:00] VITALS: BP 127/94
[2020-01-04 15:00] VITALS: BP 104/78
--- NOTE | 2020-01-04 18:24 | NUR ---
Problems reprioritized. Patient report given, questions answered & plan of care reviewed with Grace GUILLEN.
--- NOTE | 2020-01-04 18:30 | NUR ---
Patient in room PCU 3011. I have received report from MINDY Leong and had the opportunity to ask questions and assume patient care.
[2020-01-04 19:34] VITALS: BP 135/72
[2020-01-04 22:00] VITALS: BP 146/80
[2020-01-05 02:50] VITALS: BP 120/78
[2020-01-05] MEDS: normal saline 1000ml 1,000 ML IV SCH ×3 (03:35→23:48)
[2020-01-05 04:50] LABS: BASOPHILS % (AUTO) 0.6 % (0-1); EOSINOPHILS # (AUTO) 0.2 X10'3 (0-0.9); EOSINOPHILS % (AUTO) 2.9 % (0-6); HEMATOCRIT 39.4 % (42.0-52.0); HEMOGLOBIN 13.1 g/dl (14.0-17.9); LYMPHOCYTES # (AUTO) 2.5 X10'3 (1.1-4.8); LYMPHOCYTES % (AUTO) 28.7 % (21-51); MEAN CORPUSCULAR HEMOGLOBIN 26.5 PG (27.0-31.0); MEAN CORPUSCULAR HGB CONC 33.3 g/dL (33.0-36.5); MEAN CORPUSCULAR VOLUME 79.8 FL (78-98); MEAN PLATELET VOLUME 9.6 FL (7.4-10.4); MONOCYTES # (AUTO) 0.5 X10'3 (0-0.9); NEUTROPHILS # (AUTO) 5.3 X10'3 (1.8-7.7); NEUTROPHILS % (AUTO) 61.8 % (42-75); PLATELET COUNT 155 X10'3 (140-440); RED BLOOD COUNT 4.94 X10'6 (4.70-6.10); RED CELL DISTRIBUTION WIDTH 13.9 % (11.5-14.5); WHITE BLOOD COUNT 8.6 X10'3 (4.5-11.0)
[2020-01-05 05:05] LABS: ALANINE AMINOTRANSFERASE 62 U/L (12-78); ALBUMIN 2.9 G/DL (3.4-5.0); ALKALINE PHOSPHATASE 132 IU/L (46-116); ANION GAP 9 (8-16); ASPARTATE AMINO TRANSFERASE 37 U/L (10-37); BILIRUBIN,TOTAL 2.5 MG/DL (0.1-1.0); BLOOD UREA NITROGEN 8 MG/DL (7-18); BUN/CREATININE RATIO 7.7 (5.4-32.0); CALCIUM 8.2 MG/DL (8.5-10.1); CHLORIDE 109 MMOL/L (99-107); CREATININE 1.04 MG/DL (0.60-1.10); GLUCOSE 86 MG/DL (70-104); MAGNESIUM 1.7 MG/DL (1.5-2.4); POTASSIUM 3.7 MMOL/L (3.5-5.1); SODIUM 143 MMOL/L (135-145); TOTAL CARBON DIOXIDE 25.3 MMOL/L (24-32); TOTAL PROTEIN 5.9 G/DL (6.4-8.2); eGFR 81 ML/MIN
--- NOTE | 2020-01-05 06:06 | NUR ---
Problems reprioritized. Patient report given, questions answered & plan of care reviewed with MINDY Leong.
--- NOTE | 2020-01-05 06:13 | NUR ---
Patient in room PCU 3011. I have received report from Grace GUILLEN and had the opportunity to ask questions and assume patient care.
[2020-01-05 07:00] VITALS: BP 118/76
[2020-01-05] MEDS: K and/or MAG REPLACEMENT MC SCH ×2 (08:00→20:00)
[2020-01-05] MEDS: methimazole 5mg tablet PO SCH ×3 (08:00→20:07)
[2020-01-05] MEDS: propranolol 10mg tablet PO SCH (08:09)
[2020-01-05] MEDS: aspirin 81mg tablet.DR PO SCH (08:10)
[2020-01-05] MEDS: lactobacillus rhamnosus 10,000 MMU CELLS/CAPSULE PO SCH ×2 (08:10→20:07)
[2020-01-05] MEDS: pantoprazole 40mg Tablet.DR PO SCH (08:11)
[2020-01-05] MEDS: piperacillin/tazo 3.375gm/50ml 50 ML IV SCH ×3 (08:11→23:44)
--- NOTE | 2020-01-05 10:16 | NUR ---
Initial: Pt admit with acute cholecystitis. No surgical intervention at this time as HIDA and MRCP are negative per MD notes. Pt with hyperthyroidism and transaminitis, pending thyroid nuclear scan and ultrasound of abdomen per MD notes. Pt currently NPO, previously with 75-100% PO intake on regular diet. LBM 01/02. No edema or wounds. No nutrition intervention warranted at this time. Will continue to follow. Recommendations: 1) Advance to regular diet as medically indicated 2) Bowel care PRN 3) Wt per rx Addendum: 01/05/20 at [address] Amended: Links added.
[2020-01-05] MEDS ORDERED: digoxin 250mcg (0.25mg) tablet PO ONE (14:20)
[2020-01-05 15:00] VITALS: BP 128/93
--- NOTE | 2020-01-05 15:55 | NUR ---
Page sent to Dr. Waldron PAGER ID: [phone] MESSAGE: [phone]: Peter Unger: Patient is upset, wondering if he is being discharged today? He might leave AMA. Thanks, Dang [phone] Addendum: 01/05/20 at 1820 by Dang Crawford RN Dr. Waldron spoke to Dr. Munson (sld teacher), he wants the patient's HR under control before he is discharged. Provided patient education, he had questions about his medications that are treating his heart rate. All questions answered and patient verbalizes understanding.
[2020-01-05] MEDS: propranolol 40mg tablet PO SCH ×2 (16:46→20:08)
--- NOTE | 2020-01-05 18:17 | NUR ---
Problems reprioritized. Patient report given, questions answered & plan of care reviewed with Grace GUILLEN.
--- NOTE | 2020-01-05 18:50 | NUR ---
Patient in room PCU 3011. I have received report from MINDY Leong and had the opportunity to ask questions and assume patient care.
[2020-01-05 19:00] VITALS: BP 164/83
[2020-01-05 23:35] VITALS: BP 125/98
--- NOTE | 2020-01-06 03:04 | NUR ---
Patient refused 0200 vital signs.
[2020-01-06 06:00] VITALS: BP 125/103
--- NOTE | 2020-01-06 06:05 | NUR ---
Problems reprioritized. Patient report given, questions answered & plan of care reviewed with MINDY Perez.
--- NOTE | 2020-01-06 06:29 | NUR ---
Patient in room PCU 3011. I have received report from MINDY Edwards and had the opportunity to ask questions and assume patient care. Patient currently sleeping in bed, bed locked and low, call light in reach, no acute distress, will continue to monitor.
[2020-01-06] MEDS: aspirin 81mg tablet.DR PO SCH (07:43)
[2020-01-06] MEDS: pantoprazole 40mg Tablet.DR PO SCH (07:45)
[2020-01-06] MEDS: methimazole 5mg tablet PO SCH (07:45)
[2020-01-06] MEDS: lactobacillus rhamnosus 10,000 MMU CELLS/CAPSULE PO SCH (07:45)
[2020-01-06] MEDS: propranolol 40mg tablet PO SCH (07:46)
[2020-01-06 07:48] LABS: HBSAG SCREEN Negative (Negative); HEPATITIS C ANTIBODY <0.1 s/co ratio (0.0-0.9)
[2020-01-06] MEDS: piperacillin/tazo 3.375gm/50ml 50 ML IV SCH (08:00)
[2020-01-06] MEDS: K and/or MAG REPLACEMENT MC SCH (08:00)
[2020-01-06] MEDS ORDERED: digoxin 250mcg (0.25mg) tablet PO SCH (08:00)
[2020-01-06] MEDS ORDERED: PANT-47 PO (08:45)
[2020-01-06] MEDS ORDERED: PROP40TA72 PO (08:45)
[2020-01-06] MEDS ORDERED: METH10TA6 PO (08:45)
[2020-01-06] MEDS ORDERED: ASPI-1071 PO (08:45)
[2020-01-06] MEDS: normal saline 1000ml 1,000 ML IV SCH (09:19)
--- NOTE | 2020-01-06 09:49 | NUR ---
received orders for patient to discharge home. patient belongings gathered, wrist band removed, telemetry removed. Patient educated on discharge medications and verbalized understadning of teaching. Patient has follow up scheduled on wednesday 01/10 with PCP. IV removed, catheter tip intact, hemostasis achieved. Patient was able to ambulate self to his own vehicle, stable at time of discharge.
== END 2020-01-06 09:45 | disposition home or self-care (01) | DRG 392 ==
LOC: ER 20:24 → ED HOLD 12-31 03:19 → PCU 3S 12-31 07:00
PROVIDERS: ADMIT Internal Medicine; ATTEND Internal Medicine
PROC: B32T1ZZ Computerized Tomography (CT Scan) of Left Pulmonary Artery using Low Osmolar Contrast (ICD-10-PCS; principal; 2019-12-31)
PROC: B3201ZZ Computerized Tomography (CT Scan) of Thoracic Aorta using Low Osmolar Contrast (ICD-10-PCS; 2019-12-31)
PROC: B32S1ZZ Computerized Tomography (CT Scan) of Right Pulmonary Artery using Low Osmolar Contrast (ICD-10-PCS; 2019-12-31)
DX: R10.11 Right upper quadrant pain (principal); J90 Pleural effusion, not elsewhere classified; K43.9 Ventral hernia without obstruction or gangrene; F12.90 Cannabis use, unspecified, uncomplicated; K76.9 Liver disease, unspecified; I48.91 Unspecified atrial fibrillation; E05.90 Thyrotoxicosis, unspecified without thyrotoxic crisis or storm; K76.0 Fatty (change of) liver, not elsewhere classified; R16.0 Hepatomegaly, not elsewhere classified
CPT/HCPCS: 36415; 71275; 74176; 74181; 76700; 78014; 78227; 80053; 80162; 81003; 83690; 83735; 84439; 84443; 84480; 85025; 85379; 85610; 85730; 86376; 86803; 87081; 87340; 93005; 93306; 96365; 96375; 99285; A9516; A9537; C9113; G0378; J1160; J2270; J2405; J2543; J2805; J3490; J7030; Q9967

== ENCOUNTER 2020-01-24 19:10 | Emergency (ER) | payer MEDICAID ==
[~2020-01-24] VITALS: Ht 188 cm; Wt 118.2 kg
[~2020-01-24 19:10] MED LIST changes: +ASPI-1071 PO; +METH10TA6 PO; -MV-M1TAB3 PO; +PANT-47 PO; +PROP40TA72 PO
[2020-01-24 19:15] VITALS: BP 138/87
[2020-01-24] MEDS ORDERED: PENI500T2 PO (20:15)
== END 2020-01-24 20:35 | disposition home or self-care (01) ==
LOC: ER 19:11
DX: K04.7 Periapical abscess without sinus (principal); F12.90 Cannabis use, unspecified, uncomplicated; Z98.890 Other specified postprocedural states; Z79.82 Long term (current) use of aspirin; Z79.899 Other long term (current) drug therapy
CPT/HCPCS: 99283

== ENCOUNTER 2020-04-26 06:56 | Day surgery (SDC) | payer BC ==
[2020-04-19 15:35] LABS: BASOPHILS # (AUTO) 0.1 X10'3 (0-0.2); BASOPHILS % (AUTO) 1.1 % (0-1); EOSINOPHILS # (AUTO) 0.3 X10'3 (0-0.9); EOSINOPHILS % (AUTO) 3.7 % (0-6); LYMPHOCYTES # (AUTO) 2.8 X10'3 (1.1-4.8); LYMPHOCYTES % (AUTO) 30.4 % (21-51); MEAN CORPUSCULAR HEMOGLOBIN 27.8 PG (27.0-31.0); MEAN CORPUSCULAR HGB CONC 33.5 g/dL (33.0-36.5); MEAN CORPUSCULAR VOLUME 83.1 FL (78-98); MEAN PLATELET VOLUME 8.6 FL (7.4-10.4); MONOCYTES # (AUTO) 0.6 X10'3 (0-0.9); MONOCYTES % (AUTO) 6.8 % (2-12); NEUTROPHILS # (AUTO) 5.3 X10'3 (1.8-7.7); PRE OP HEMATOCRIT 44.7 % (42.0-52.0); PRE OP PLATELET COUNT 166 X10'3 (140-440); RED BLOOD COUNT 5.38 X10'6 (4.70-6.10); RED CELL DISTRIBUTION WIDTH 20.1 % (11.5-14.5)
[2020-04-19 15:58] LABS: ALBUMIN 4.3 G/DL (3.4-5.0); ALBUMIN/GLOBULIN RATIO 1.3 (1.1-1.5); ALKALINE PHOSPHATASE 108 IU/L (46-116); BLOOD UREA NITROGEN 16 MG/DL (7-18); BUN/CREATININE RATIO 12.1 (5.4-32.0); CALCIUM 8.9 MG/DL (8.5-10.1); CHLORIDE 106 MMOL/L (99-107); CREATININE 1.32 MG/DL (0.60-1.10); PRE OP ALT 41 U/L (30-65); PRE OP ANION GAP 9 (8-16); PRE OP AST 26 U/L (10-37); PRE OP BILIRUB, TOTAL 2.3 MG/DL (0.0-1.0); PRE OP GLUCOSE 84 MG/DL (70-104); PRE OP SODIUM 143 MMOL/L (135-145); TOTAL CARBON DIOXIDE 27.8 MMOL/L (24-32); TOTAL PROTEIN 7.6 G/DL (6.4-8.2); eGFR 62 ML/MIN
[2020-04-19 17:18] LABS: ELLIPTOCYTES FEW; PLATELET ESTIMATE NORMAL
[2020-04-19 17:19] LABS: ANISOCYTOSIS 3+
[2020-04-26] VITALS (7 sets, daily range): BP systolic 118–130; BP diastolic 76–95
[~2020-04-26] VITALS: Ht 188 cm; Wt 131.3 kg
[~2020-04-26 06:56] MED LIST changes: -ASPI-1071 PO; +BUPIVAcaine/PF 2.5 mg/ml (0.25%) 30ml vial ONE; +DOCUMENT DATE & TIME OF BETA-BLOCKER PO ONE; +LACT1CAP65 PO; +LIDOcaine 1% 30ml preserv. free vial ONE; -PANT-47 PO; +PROP40TA7 PO; -PROP40TA72 PO; +ceFAZolin inj. 3,000 MG in normal saline 100ml IV soln 100 ML IV ONE; +famotidine 20mg tablet PO ONE; +ringers solution, lacted 1,000 ML IV SCH
[2020-04-26] MEDS ORDERED: sevoflurane 250ml liquid IH ONE (09:16)
[2020-04-26] MEDS ORDERED: fentaNYL /PF 50mcg/ml 5ml ampule ONE (09:22)
[2020-04-26] MEDS ORDERED: midazolam 2 mg/2 ml injection ONE (09:22)
[2020-04-26] MEDS ORDERED: propofol inj 20 ML IV ONE (09:23)
[2020-04-26] MEDS ORDERED: BUPIVACAINE liposomal/PF 13.3 MG/ML vial IM ONE (09:39)
[2020-04-26] MEDS ORDERED: BUPIVAcaine/PF 2.5mg/ml (0.25%) 10ml vial ONE (09:39)
[2020-04-26] MEDS ORDERED: dexamethasone sod phosphate 4mg/ml inj. ONE (11:00)
[2020-04-26] MEDS ORDERED: ondansetron/PF 4mg/2ml inj ONE (11:00)
[2020-04-26] MEDS ORDERED: rocuronium 10mg/ml inj IV ONE (11:00)
[2020-04-26] MEDS ORDERED: neostigmine methylsulfate 1 MG/ML 10ml vial ONE (11:01)
[2020-04-26] MEDS ORDERED: glycopyrrolate 0.2mg/ml inj ONE (11:01)
--- NOTE | 2020-04-26 11:16 | NUR ---
Received from OR via , accompanied by Anesthesiologist DR AGUIAR and report given by Anesthesiolgist. AWAKENS TO VOICE. VITALS STABLE. DRESSINGS DI. JENNIFFER PAIN. ABD SOFT.
[2020-04-26] MEDS ORDERED: oxyCODONE/APAP 5-325mg tablet PO PRN (11:25)
[2020-04-26] MEDS ORDERED: ringers solution, lacted 1,000 ML IV SCH (11:56)
[2020-04-26] MEDS ORDERED: proCHLORperazine 10 MG/2 ml inj IV PRN (12:00)
[2020-04-26] MEDS ORDERED: ondansetron/PF 4mg/2ml inj IV PRN (12:00)
[2020-04-26] MEDS ORDERED: meperidine/PF 25mg/ml syringe IV PRN ×3 (12:00)
[2020-04-26] MEDS ORDERED: morphine 4 MG/ML inj SYRINge IV PRN (12:00)
[2020-04-26] MEDS ORDERED: morphine 2 MG/ML inj. syringe IV PRN (12:00)
--- NOTE | 2020-04-26 12:26 | NUR ---
AWAKE AND ORIENTED. VITALS STABLE. DRESSINGS DI. STATES PAIN IMPROVING. HOME WITH HIS AT THIS TIME.
== END 2020-04-26 12:26 | disposition home or self-care (01) ==
LOC: PAS 06:56
PROVIDERS: ATTEND Surgery
DX: K43.6 Other and unspecified ventral hernia with obstruction, without gangrene (principal); K42.9 Umbilical hernia without obstruction or gangrene; E66.9 Obesity, unspecified; Z68.37 Body mass index [BMI] 37.0-37.9, adult; E05.90 Thyrotoxicosis, unspecified without thyrotoxic crisis or storm; I48.91 Unspecified atrial fibrillation; Z87.891 Personal history of nicotine dependence; Z98.890 Other specified postprocedural states; Z11.59 Encounter for screening for other viral diseases; Z79.899 Other long term (current) drug therapy
CPT/HCPCS: 36415; 49653; 64488; 80053; 82948; 84443; 85025; C1781; C9290; J0690; J1100; J2001; J2250; J2405; J2704; J2710; J3010; J3490; J7120; S2900; U0003; A4215; A4618

== ENCOUNTER 2021-06-21 17:15 | Emergency (ER) | payer BC, MEDICAID ==
[~2021-06-21] VITALS: Ht 188 cm; Wt 145.4 kg
[~2021-06-21 17:15] MED LIST changes: -BUPIVAcaine/PF 2.5 mg/ml (0.25%) 30ml vial ONE; -DOCUMENT DATE & TIME OF BETA-BLOCKER PO ONE; -LIDOcaine 1% 30ml preserv. free vial ONE; -ceFAZolin inj. 3,000 MG in normal saline 100ml IV soln 100 ML IV ONE; -famotidine 20mg tablet PO ONE; -ringers solution, lacted 1,000 ML IV SCH
[2021-06-21 17:27] VITALS: BP 140/86
[2021-06-21 18:18] LABS: ALANINE AMINOTRANSFERASE 38 U/L (12-78); ALBUMIN 4.3 G/DL (3.4-5.0); ALBUMIN/GLOBULIN RATIO 1.2 (1.1-1.5); ALKALINE PHOSPHATASE 66 IU/L (46-116); ANION GAP 11 (8-16); ASPARTATE AMINO TRANSFERASE 24 U/L (10-37); BILIRUBIN,TOTAL 1.2 MG/DL (0.1-1.0); BLOOD UREA NITROGEN 13 MG/DL (7-18); BUN/CREATININE RATIO 10.4 (5.4-32.0); CALCIUM 8.3 MG/DL (8.5-10.1); CHLORIDE 105 MMOL/L (99-107); CREATININE 1.25 MG/DL (0.60-1.10); GLUCOSE 84 MG/DL (70-104); POTASSIUM 3.8 MMOL/L (3.5-5.1); SODIUM 142 MMOL/L (135-145); TOTAL CARBON DIOXIDE 26.3 MMOL/L (24-32); TOTAL PROTEIN 7.8 G/DL (6.4-8.2); eGFR 65 ML/MIN
[2021-06-21 18:47] LABS: BASOPHILS # (AUTO) 0.1 X10'3 (0-0.2); BASOPHILS % (AUTO) 0.5 % (0-1); EOSINOPHILS # (AUTO) 0.3 X10'3 (0-0.9); EOSINOPHILS % (AUTO) 2.9 % (0-6); HEMATOCRIT 43.4 % (42.0-52.0); HEMOGLOBIN 14.6 g/dl (14.0-17.9); LYMPHOCYTES # (AUTO) 2.1 X10'3 (1.1-4.8); MEAN CORPUSCULAR HGB CONC 33.7 g/dL (33.0-36.5); MEAN PLATELET VOLUME 9.1 FL (7.4-10.4); MONOCYTES # (AUTO) 0.8 X10'3 (0-0.9); MONOCYTES % (AUTO) 7.3 % (2-12); NEUTROPHILS # (AUTO) 7.3 X10'3 (1.8-7.7); NEUTROPHILS % (AUTO) 69.3 % (42-75); PLATELET COUNT 160 X10'3 (140-440); RED BLOOD COUNT 4.71 X10'6 (4.70-6.10); RED CELL DISTRIBUTION WIDTH 14.3 % (11.5-14.5); WHITE BLOOD COUNT 10.6 X10'3 (4.5-11.0)
== END 2021-06-22 00:56 | disposition left against medical advice (07) ==
LOC: ER 17:15
DX: R60.0 Localized edema (principal); Z53.21 Procedure and treatment not carried out due to patient leaving prior to being seen by health care provider
CPT/HCPCS: 36415; 80053; 83880; 84484; 85025

== ENCOUNTER 2023-06-06 08:53 | Emergency (ER) | payer MEDICAID, OTHER ==
[~2023-06-06] VITALS: Ht 188 cm; Wt 169.0 kg
[~2023-06-06 08:53] MED LIST changes: +METH-375 PO; -METH10TA6 PO
[2023-06-06 09:39] LABS: BASOPHILS % (AUTO) 0.5 % (0-1); EOSINOPHILS # (AUTO) 0.1 X10'3 (0-0.9); EOSINOPHILS % (AUTO) 1.2 % (0-6); HEMATOCRIT 43.5 % (42.0-52.0); HEMOGLOBIN 14.3 g/dl (14.0-17.9); MEAN CORPUSCULAR HEMOGLOBIN 28.9 PG (27.0-31.0); MEAN CORPUSCULAR HGB CONC 32.9 g/dL (33.0-36.5); MEAN CORPUSCULAR VOLUME 87.9 FL (78-98); MEAN PLATELET VOLUME 9.1 FL (7.4-10.4); MONOCYTES # (AUTO) 0.9 X10'3 (0-0.9); NEUTROPHILS # (AUTO) 6.2 X10'3 (1.8-7.7); NEUTROPHILS % (AUTO) 75.3 % (42-75); PLATELET COUNT 153 X10'3 (140-440); RED BLOOD COUNT 4.95 X10'6 (4.70-6.10); RED CELL DISTRIBUTION WIDTH 14.8 % (11.5-14.5); WHITE BLOOD COUNT 8.3 X10'3 (4.5-11.0)
[2023-06-06 09:57] LABS: ALANINE AMINOTRANSFERASE 48 U/L (12-78); ALBUMIN 3.7 G/DL (3.4-5.0); ALBUMIN/GLOBULIN RATIO 1.1 (1.1-1.5); ALKALINE PHOSPHATASE 74 IU/L (46-116); ANION GAP 6 (8-16); ASPARTATE AMINO TRANSFERASE 21 U/L (10-37); BILIRUBIN,TOTAL 1.3 MG/DL (0.1-1.0); BLOOD UREA NITROGEN 18 MG/DL (7-18); BUN/CREATININE RATIO 15.8 (10.0-20.0); CALCIUM 8.5 MG/DL (8.5-10.1); CHLORIDE 103 MMOL/L (99-107); CREATININE 1.14 MG/DL (0.60-1.10); GLUCOSE 106 MG/DL (70-104); POTASSIUM 3.8 MMOL/L (3.5-5.1); SODIUM 137 MMOL/L (135-145); TOTAL CARBON DIOXIDE 27.7 MMOL/L (24-32); TOTAL PROTEIN 7.1 G/DL (6.4-8.2); eGFR 72 ML/MIN
[2023-06-06] MEDS ORDERED: furosemide 20MG tablet PO ONE (10:40)
[2023-06-06] MEDS ORDERED: FURO-150 PO (10:41)
[2023-06-06] MEDS ORDERED: POTA-188 PO (10:41)
[2023-06-06 10:50] VITALS: BP 162/103; PULSE 77; RESP 17; O2SAT 96
== END 2023-06-06 10:51 | disposition home or self-care (01) ==
LOC: ER 08:53
DX: R60.0 Localized edema (principal); I51.9 Heart disease, unspecified; E05.90 Thyrotoxicosis, unspecified without thyrotoxic crisis or storm; F12.10 Cannabis abuse, uncomplicated; Z79.899 Other long term (current) drug therapy
CPT/HCPCS: 36415; 71045; 80053; 83880; 84484; 85025; 93005; 99285

== ENCOUNTER 2023-09-01 07:47 | Emergency (ER) | payer OTHER ==
[~2023-09-01] VITALS: Ht 188 cm; Wt 179.2 kg
[~2023-09-01 07:47] MED LIST changes: +FURO-150 PO
[2023-09-01 07:59] VITALS: BP 165/102; PULSE 81; RESP 18; TEMP 99.2; O2SAT 98
[2023-09-01] MEDS ORDERED: HYDR-3973 PO (09:24)
--- NOTE | 2023-09-01 13:14 | NUR ---
GLOBAL CHIEF CREATIVE OFFICER ASSESSMENT REVIEWED BY SALONI FARAH RN; APPROVED
== END 2023-09-01 10:06 | disposition home or self-care (01) ==
LOC: ER 07:47
DX: S83.92XA Sprain of unspecified site of left knee, initial encounter (principal); F12.90 Cannabis use, unspecified, uncomplicated; Z79.899 Other long term (current) drug therapy; W01.0XXA Fall on same level from slipping, tripping and stumbling without subsequent striking against object, initial encounter; Y93.89 Activity, other specified; Y92.89 Other specified places as the place of occurrence of the external cause; Y99.8 Other external cause status
CPT/HCPCS: 73564; 99284; A6449

== ENCOUNTER 2024-01-22 10:54 | Emergency (ER) | payer OTHER ==
[~2024-01-22] VITALS: Ht 188 cm; Wt 176.5 kg
[2024-01-22 10:58] VITALS: BP 158/91; PULSE 80; O2SAT 98
[2024-01-22] MEDS ORDERED: ketorolac trometh inj. 60 MG/2 ML VIAL IM ONE (13:20)
[2024-01-22] MEDS ORDERED: NAPR-996 PO (13:29)
[2024-01-22] MEDS ORDERED: HYDR-3965 PO (13:29)
[2024-01-22 13:38] VITALS: RESP 18
[2024-01-22] MEDS: ketorolac trometh. 30mg/ml inj. IM ONE (13:38)
[2024-01-22 13:45] VITALS: TEMP 97.8
== END 2024-01-22 13:47 | disposition home or self-care (01) ==
LOC: ER 10:54
DX: M25.562 Pain in left knee (principal)
CPT/HCPCS: 73564; 96372; 99283; J1885